=== PATIENT | male | born 1995 | race Caucasian/White ===

== ENCOUNTER 2016-08-10 18:23 | Emergency (ER) | payer OTHER, BC ==
[~2016-08-10] VITALS: Ht 175.3 cm; Wt 59.0 kg
[2016-08-10] MEDS ORDERED: ALBU17IN2 INH (18:33)
[2016-08-10] MEDS ORDERED: ADACEL/BOOSTRIX VACCINE (DIPHTH/PERTUSS/ACELL/TETANUS)0.5ML SYR (90715) IM ONE (19:00)
[2016-08-10 19:26] VITALS: BP 120/64
== END 2016-08-10 19:45 | disposition home or self-care (01) ==
LOC: M ED 19:12
DX: T22.211A Burn of second degree of right forearm, initial encounter (principal); X10.1XXA Contact with hot food, initial encounter; Y92.89 Other specified places as the place of occurrence of the external cause; Y93.89 Activity, other specified; Y99.0 Civilian activity done for income or pay

== ENCOUNTER → 2018-07-14 | Outpatient (CLI) | payer OTHER, BC ==
[~2018-07-14] MED LIST: ALBU17IN2 INH
--- NOTE | 2018-07-14 16:36 | REP ---
RIGHT WRIST, FOUR VIEWS: HISTORY: Injury. There is no acute fracture or dislocation. The joint spaces are normal in appearance. IMPRESSION: There is no acute fracture or dislocation. Electronically Signed by Chintan Walker MD 07/14/2018 04:38 P
== END ==
LOC: M WUC 14:04
PROVIDERS: ATTEND Physician Assistant
DX: M25.531 Pain in right wrist (principal)

== ENCOUNTER → 2019-12-21 | Outpatient (CLI) | payer BC, OTHER ==
--- NOTE | 2020-01-22 11:09 | REP ---
COMPLETE ABDOMINAL ULTRASOUND REASON FOR EXAM: Right upper quadrant pain and change in bowel habit. COMPARISON: None. FINDINGS: Multiple ultrasonographic images of the liver show the hepatic parenchymal echo pattern to be within normal limits. There are no masses. There is no intrahepatic or extrahepatic ductal dilatation. The common bile duct measures 2 mm. Multiple ultrasonographic images of the gallbladder show no abnormalities. There was no gallbladder wall thickening, pericholecystic edema, or choleliths. The imaged portion of the pancreas is within normal limits. The spleen has a maximal dimension of 10 cm with a calculated volumetric index of 329, which is within normal limits. There is no splenic or perisplenic abnormality. The right kidney measures 9.7 x 5.9 x 5.0 cm and the left kidney measures 10.3 x 5.0 x 5.3 cm. Both kidneys are within normal limits showing no cystic or solid masses and no hydronephrosis. Due to the patients complaint of right lower quadrant pain, additional scanning was performed over the right lower quadrant and the appendix was not visualized. There is no free fluid. IMPRESSION: Complete abdominal ultrasound is within normal limits with finding and limitations as described above. If acute appendicitis is of clinical concern, then I would recommend follow-up with contrast-enhanced CT of the abdomen and pelvis. JOHNNY
== END ==
LOC: M RAD 07:16
PROVIDERS: ATTEND Physician Assistant
DX: R10.31 Right lower quadrant pain (principal)

== ENCOUNTER → 2021-01-18 | Outpatient (REF) | LOC: M EMP 12:27 | PROVIDERS: ATTEND Family Medicine | DX: Z11.52 Encounter for screening for COVID-19 (principal); Z20.822 Contact with and (suspected) exposure to COVID-19 ==

== ENCOUNTER → 2021-04-29 | Outpatient (REF) | LOC: M EMP 13:33 | PROVIDERS: ATTEND Family Medicine | DX: Z11.52 Encounter for screening for COVID-19 (principal); Z20.822 Contact with and (suspected) exposure to COVID-19 ==

== ENCOUNTER → 2021-07-08 | Outpatient (REF) | LOC: M EMP 11:21 | PROVIDERS: ATTEND Family Medicine | DX: Z11.52 Encounter for screening for COVID-19 (principal) ==

== ENCOUNTER → 2024-01-23 | Outpatient (REF) | LOC: M EMP 09:38 | PROVIDERS: ATTEND Family Medicine | DX: Z11.52 Encounter for screening for COVID-19 (principal) ==

== ENCOUNTER → 2024-02-29 | Outpatient (REF) | LOC: M EMP 12:51 | PROVIDERS: ATTEND Family Medicine | DX: Z11.52 Encounter for screening for COVID-19 (principal) ==

== ENCOUNTER → 2024-05-29 | Outpatient (REF) | LOC: M EMP 09:58 | PROVIDERS: ATTEND Family Medicine | DX: Z11.52 Encounter for screening for COVID-19 (principal) ==